=== PATIENT | female | born 1935 | race Caucasian/White ===

== ENCOUNTER 2017-05-15 03:10 | Emergency (ER) | payer MEDICARE ==
--- NOTE | 2017-05-15 03:48 | ER Document Report ---
ED General - General Stated Complaint: FALL Time Seen by Provider: 05/15/17 03:41 Notes: 81 years old male from [facility], accidentally in the bathroom fell hit the wall and sustained a laceration of the right eyebrow therefore presented to the ED she states that she has little bit of headache but no focal weakness numbness tingling sensation. Denies any neck pain neck stiffness. - Related Data Allergies/Adverse Reactions: BUG BITES Adverse Reaction (Uncoded 05/15/17 03:53) Past Medical History - Social History Smoking Status: Never Smoker Family History: CVA, Hypertension Review of Systems - Review of Systems Notes: REVIEW OF SYSTEMS: CONSTITUTIONAL : Denies fever, chills, or sweats. Denies recent illness. EENT: Denies eye, ear, throat, or mouth pain or symptoms. Denies nasal or sinus congestion or discharge. Denies throat, tongue, or mouth swelling or difficulty swallowing. CARDIOVASCULAR: Denies chest pain. Denies palpitations or racing or irregular heart beat. Denies ankle edema. RESPIRATORY: Denies cough, cold, or chest congestion. Denies shortness of breath, difficulty breathing, or wheezing. GASTROINTESTINAL: Denies abdominal pain or distention. Denies nausea, vomiting , or diarrhea. Denies blood in vomitus, stools, or per rectum. Denies black, tarry stools. Denies constipation. GENITOURINARY: Denies difficulty urinating, painful urination, burning, frequency, blood in urine, or discharge. FEMALE GENITOURINARY: Denies vaginal bleeding, heavy or abnormal periods, irregular periods. Denies vaginal discharge or odor. MUSCULOSKELETAL: Denies back or neck pain or stiffness. Denies joint pain or swelling. SKIN: Denies rash, lesions or sores. HEMATOLOGIC : Denies easy bruising or bleeding. LYMPHATIC: Denies swollen, enlarged glands. NEUROLOGICAL: Denies confusion or altered mental status. Denies passing out or loss of consciousness. Denies dizziness or lightheadedness. Denies headache. Denies weakness or paralysis or loss of use of either side. Denies problems with gait or speech. Denies sensory loss, numbness, or tingling. Denies seizures. PSYCHIATRIC: Denies anxiety or stress. Denies depression, suicidal ideation, or homicidal ideation. ALL OTHER SYSTEMS REVIEWED AND NEGATIVE. PHYSICAL EXAMINATION: GENERAL: Well-appearing, well-nourished and in no acute distress. HEAD: Right eyebrow minor laceration, normocephalic. EYES: Pupils equal round and reactive to light, extraocular movements intact, conjunctiva are normal. ENT: Nares patent, oropharynx clear without exudates. Moist mucous membranes. NECK: Normal range of motion, supple without lymphadenopathy LUNGS: Breath sounds clear to auscultation bilaterally and equal. No wheezes rales or rhonchi. HEART: Regular rate and rhythm without murmurs ABDOMEN: Soft, nontender, nondistended abdomen. No guarding, no rebound. No masses appreciated. Female : deferred Musculoskeletal: Normal range of motion, no pitting or edema. No cyanosis. Range of motion for shoulder shoulder elbow within normal range for her age but no tenderness. No pain elicited. Hip there were no tenderness able to flex and extend without any discomfort. NEUROLOGICAL: Cranial nerves grossly intact. Normal speech, normal gait. Normal sensory, motor exams PSYCH: Normal mood, normal affect. SKIN: Warm, Dry, normal turgor, no rashes or lesions noted. Dictation was performed using [employer] voice recognition software Physical Exam - Vital signs Vitals: Temp Pulse Resp BP Pulse Ox 97.6 F 67 15 145/71 H 97 05/15/17 03:15 05/15/17 03:15 05/15/17 03:15 05/15/17 03:15 05/15/17 03:15 Course - Vital Signs Vital signs: Temp Pulse Resp BP Pulse Ox 97.6 F 67 15 145/71 H 97 05/15/17 03:15 05/15/17 03:15 05/15/17 03:15 05/15/17 03:15 05/15/17 03:15 - Diagnostic Test Radiology reviewed: Reports reviewed - Reported by radiologist as negative CAT scan of the brain Discharge - Discharge Clinical Impression: Fall Qualifiers: Encounter type: initial encounter Qualified Code(s): W19.XXXA - Unspecified fall, initial encounter Head injury, acute Qualifiers: Encounter type: initial encounter Qualified Code(s): S09.90XA - Unspecified injury of head, initial encounter Laceration of eyebrow Qualifiers: Encounter type: initial encounter Laterality: right Qualified Code(s): S01.111A - Laceration without foreign body of right eyelid and periocular area, initial encounter Disposition: HOME, SELF-CARE Instructions: Head Injury Precautions ([facility])
--- NOTE | 2017-05-15 04:16 | RADIOLOGY REPORT (SQ) ---
EXAM DESCRIPTION: CT HEAD WITHOUT CLINICAL HISTORY: 81 years Female, head injury COMPARISON: None. TECHNIQUE: No contrast. This exam was performed according to our departmental dose-optimization program, which includes automated exposure control, adjustment of the mA and/or kV according to patient size and/or use of iterative reconstruction technique. FINDINGS: Mild cerebral volume loss, and moderate confluent white matter microangiopathy. No hemorrhage and no infarct. No mass, mass effect, or midline shift. 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 Extra-axial structures appear otherwise grossly intact. IMPRESSION: No acute findings.
[2017-05-15 05:38] VITALS: BP 155/74
== END 2017-05-15 06:07 | disposition home or self-care (01) ==
LOC: ER 03:10
DX: S01.111A Laceration without foreign body of right eyelid and periocular area, initial encounter (principal); W19.XXXA Unspecified fall, initial encounter; Y92.121 Bathroom in nursing home as the place of occurrence of the external cause; R51 Headache
CPT/HCPCS: 70450; 99284

== ENCOUNTER → 2017-10-11 | Outpatient (CLI) | payer MEDICARE ==
[2017-10-11 12:50] LABS: AMORPHOUS SEDIMENT,URINE TRACE /HPF; APPEARANCE,URINE CLOUDY; BILIRUBIN,URINE NEGATIVE (NEGATIVE); COLOR,URINE YELLOW; GLUCOSE, URINE NEGATIVE (NEGATIVE); KETONES,URINE NEGATIVE (NEGATIVE); LEUKOCYTE ESTERASE,URINE LARGE (NEGATIVE); NITRITE,URINE NEGATIVE (NEGATIVE); PROTEIN,URINE 100 mg/dL (NEGATIVE); URINE SPECIFIC GRAVITY 1.018; UROBILINOGEN,URINE NEGATIVE mg/dL (<2.0)
== END ==
LOC: LCAL 11:46
PROVIDERS: ATTEND Internal Medicine
DX: N39.0 Urinary tract infection, site not specified (principal)
CPT/HCPCS: 81001; 87086; 87088; 87186

== ENCOUNTER 2017-10-21 18:32 | Emergency (ER) | payer MEDICARE ==
--- NOTE | 2017-10-21 18:57 | ER Document Report ---
ED General - General Chief Complaint: Urinary Problem Stated Complaint: URINATION ISSUE Time Seen by Provider: 10/21/17 18:38 Mode of Arrival: Medic Information source: Patient, Relative, Transfer Record, [facility] Records, Outside Facility Records Cannot obtain history due to: Dementia Notes: 82-year-old female with vascular dementia presents with her daughter who is concerned for chronic urinary tract infection. Per the daughter patient has had a urinary tract infection for over 1 month. She has been on cefuroxime intermittently for over 1 month. Daughter states that she became concerned when her mother had a low-grade temperature last night. Her last dose of antibiotic was yesterday. Recent urine culture showed that the antibiotic she has been prescribed is sensitive to E. coli but not Pseudomonas. Patient is at her baseline per her daughter which is alert and oriented 1. She denies any pain at this time. TRAVEL OUTSIDE OF THE [place] IN LAST 30 DAYS: No - HPI Onset: Other Quality of pain: No pain Associated symptoms: Fever Exacerbated by: Denies Relieved by: Denies Similar symptoms previously: Yes Recently seen / treated by doctor: Yes - Related Data Allergies/Adverse Reactions: BUG BITES Adverse Reaction (Uncoded 05/15/17 03:53) Past Medical History - General Information source: Relative, Transfer Record, Emergency Med Personnel, [facility] Records, Outside Facility Records Cannot obtain history due to: Dementia - Social History Smoking Status: Unknown if Ever Smoked Frequency of alcohol use: None Drug Abuse: None Lives with: Assisted Family History: CVA, Hypertension Patient has suicidal ideation: No Patient has homicidal ideation: No - Past Medical History Cardiac Medical History: Reports: Hx Hypertension Renal/ Medical History: Denies: Hx Peritoneal Dialysis Review of Systems - Review of Systems -: Yes ROS unobtainable due to patient's medical condition Physical Exam - Vital signs Vitals: Temp Pulse Resp BP Pulse Ox 98.2 F 64 16 148/48 H 98 10/21/17 18:35 10/21/17 18:35 10/21/17 18:35 10/21/17 18:35 10/21/17 18:35 - Notes Notes: PHYSICAL EXAMINATION: GENERAL: Well-appearing, well-nourished and in no acute distress. HEAD: Atraumatic, normocephalic. EYES: Pupils equal round and reactive to light, extraocular movements intact, conjunctiva are normal. ENT: Nares patent, oropharynx clear without exudates. Moist mucous membranes. NECK: Normal range of motion, supple without lymphadenopathy LUNGS: Breath sounds clear to auscultation bilaterally and equal. No wheezes rales or rhonchi. HEART: Regular rate and rhythm without murmurs ABDOMEN: Soft, nontender, nondistended abdomen. No guarding, no rebound. No masses appreciated. Female : deferred Musculoskeletal: Normal range of motion, no pitting or edema. No cyanosis. NEUROLOGICAL: Cranial nerves grossly intact. Normal sensory, motor exams. AO 1 PSYCH: Normal mood, normal affect. SKIN: Warm, Dry, normal turgor, no rashes or lesions noted. Course - Re-evaluation Re-evalutation: Microbiology 10/21/17 20:05 Urine Culture - Preliminary Catheterized Urine Gram Negative [facility] 10/21/17 10/21/17 10/21/17 19:45 19:45 19:45 WBC 10.2 RBC 4.13 Hgb 12.2 Hct 36.2 MCV 88 MCH 29.6 MCHC 33.8 RDW 13.8 Plt Count 654 H Total Counted 100 Seg Neutrophils % Not Reportable Seg Neuts % (Manual) 55 Lymphocytes % Not Reportable Lymphocytes % (Manual) 30 Monocytes % Not Reportable Monocytes % (Manual) 8 Eosinophils % Not Reportable Eosinophils % (Manual) 6 Basophils % Not Reportable Basophils % (Manual) 1 Absolute Neutrophils Not Reportable Abs Neuts (Manual) 5.6 Absolute Lymphocytes Not Reportable Abs Lymphs (Manual) 3.1 Absolute Monocytes Not Reportable Abs Monocytes (Manual) 0.8 Absolute Eosinophils Not Reportable Absolute Eos (Manual) 0.6 Absolute Basophils Not Reportable Abs Basophils (Manual) 0.1 Toxic Granulation SLIGHT Toxic Vacuolation PRESENT Clumped Platelets PRESENT Platelet Comment Not Reportable Polychromasia SLIGHT Hypochromasia SLIGHT Sodium 142.0 Potassium 4.5 Chloride 101 Carbon Dioxide 30 Anion Gap 11 BUN 15 Creatinine 0.69 Est GFR ( Amer) > 60 Est GFR (Non-Af Amer) > 60 Glucose 105 Lactic Acid 1.2 Calcium 9.6 Total Bilirubin < 0.1 L Direct Bilirubin Neonat Total Bilirubin Not Reportable Neonat Direct Bilirubin Not Reportable Neonat Indirect Bili Not Reportable AST 19 ALT 22 Alkaline Phosphatase 111 Total Protein 8.2 Albumin 3.8 Urine Color Urine Appearance Urine pH Ur Specific [place] Urine Protein Urine Glucose (UA) Urine Ketones Urine Blood Urine Nitrite Urine Bilirubin Urine Urobilinogen Ur Leukocyte Esterase Urine WBC (Auto) Urine RBC (Auto) Urine Bacteria (Auto) Urine WBC Clumps Squamous Epi Cells Auto Urine Mucus (Auto) Urine Ascorbic Acid 10/21/17 20:05 WBC RBC Hgb Hct MCV MCH MCHC RDW Plt Count Total Counted Seg Neutrophils % Seg Neuts % (Manual) Lymphocytes % Lymphocytes % (Manual) Monocytes % Monocytes % (Manual) Eosinophils % Eosinophils % (Manual) Basophils % Basophils % (Manual) Absolute Neutrophils Abs Neuts (Manual) Absolute Lymphocytes Abs Lymphs (Manual) Absolute Monocytes Abs Monocytes (Manual) Absolute Eosinophils Absolute Eos (Manual) Absolute Basophils Abs Basophils (Manual) Toxic Granulation Toxic Vacuolation Clumped Platelets Platelet Comment Polychromasia Hypochromasia Sodium Potassium Chloride Carbon Dioxide Anion Gap BUN Creatinine Est GFR ( Amer) Est GFR (Non-Af Amer) Glucose Lactic Acid Calcium Total Bilirubin Direct Bilirubin Neonat Total Bilirubin Neonat Direct Bilirubin Neonat Indirect Bili AST ALT Alkaline Phosphatase Total Protein Albumin Urine Color YELLOW Urine Appearance CLOUDY Urine pH 6.0 Ur Specific [place] 1.018 Urine Protein NEGATIVE Urine Glucose (UA) NEGATIVE Urine Ketones NEGATIVE Urine Blood SMALL H Urine Nitrite NEGATIVE Urine Bilirubin NEGATIVE Urine Urobilinogen NEGATIVE Ur Leukocyte Esterase LARGE H Urine WBC (Auto) 179 Urine RBC (Auto) 12 Urine Bacteria (Auto) 1+ Urine WBC Clumps FEW Squamous Epi Cells Auto <1 Urine Mucus (Auto) RARE Urine Ascorbic Acid NEGATIVE 10/21/17 21:33 10/22/17 19:51 82-year-old female with vascular dementia presents with her daughter who is concerned for chronic urinary tract infection. Per the daughter patient has had a urinary tract infection for over 1 month. She has been on cefuroxime intermittently for over 1 month. Daughter states that she became concerned when her mother had a low-grade temperature last night. Her last dose of antibiotic was yesterday. Culture results reviewed from 10/11/2017 which shows that cefuroxime is sensitive to E. coli but not Pseudomonas. I will start patient on ciprofloxacin. Urine culture will be sent. Patient was seen by myself upon arrival. Vital signs were reviewed. Patient is afebrile, normotensive and not hypoxic. Patient does not appear toxic or dehydrated. They are in no acute distress. Previous medical records and nursing notes reviewed. CBC is without leukocytosis or anemia. CMP shows no electrolyte abnormalities. Urinalysis is significant for large leuk esterase and 179 wbc. I feel is reasonable for the patient to be discharged home at this time. There is no evidence of urosepsis. I would not call her outpatient failure since the antibiotic that she was prescribed was sensitive to 1 of the bug that grew out culture. Patient received Cipro in the emergency department and will be discharged home with Cipro. Urine culture pending. Patient/family provided the opportunity to ask questions, and express concerns. Discharge instructions discussed. Patient/ is agreeable with discharge home. Return indications explained and discussed with the patient who displays understanding. Patient encouraged to return to the emergency department immediately with any concerns. - Vital Signs Vital signs: Temp Pulse Resp BP Pulse Ox 97.9 F 67 18 145/84 H 98 10/21/17 23:52 10/21/17 23:52 10/21/17 23:52 10/21/17 23:52 10/21/17 23:52 - Laboratory Result Diagrams: 10/21/17 19:45 10/21/17 19:45 Laboratory results interpreted by me: 10/21/17 10/21/17 10/21/17 19:45 19:45 20:05 Plt Count 654 H Total Bilirubin < 0.1 L Urine Blood SMALL H Ur Leukocyte Esterase LARGE H Discharge - Discharge Clinical Impression: UTI (urinary tract infection) Qualifiers: Urinary tract infection type: site unspecified Hematuria presence: with hematuria Qualified Code(s): N39.0 - Urinary tract infection, site not specified Condition: Good Disposition: SNF-Other Instructions: Urinary Tract Infection, Child ([facility]) Additional Instructions: Follow up with your physician tomorrow for further care or return to the ED IMMEDIATELY if symptoms worsen or new concerns occur. If you cannot afford to follow up with your primary care physician a list of low cost clinics have been provided at the end of your discharge papers as well. Prescriptions: Ciprofloxacin HCl [Cipro 500 mg Tablet] 500 mg PO BID #20 tablet
[2017-10-21] MEDS ORDERED: NORMAL SALINE 1000 ML 1,000 ML IV ONE (19:16)
[2017-10-21 19:57] LABS: HEMATOCRIT 36.2 % (36.0-47.0); HEMOGLOBIN 12.2 g/dL (12.0-15.5); MEAN CORPUSCULAR HEMOGLOBIN 29.6 pg (27.0-33.4); MEAN CORPUSCULAR HGB CONC 33.8 g/dL (32.0-36.0); MEAN CORPUSCULAR VOLUME 88 fl (80-97); PLATELET COUNT 654 10^3/uL (150-450); RED BLOOD COUNT 4.13 10^6/uL (3.72-5.28); RED CELL DISTRIBUTION WIDTH 13.8 % (11.5-14.0); WHITE BLOOD COUNT 10.2 10^3/uL (4.0-10.5)
[2017-10-21 20:12] LABS: ALANINE AMINOTRANSFERASE 22 U/L (9-52); ALBUMIN 3.8 g/dL (3.5-5.0); ALKALINE PHOSPHATASE 111 U/L (38-126); ANION GAP 11 (5-19); ASPARTATE AMINO TRANSFERASE 19 U/L (14-36); BLOOD UREA NITROGEN 15 mg/dL (7-20); CALCIUM 9.6 mg/dL (8.4-10.2); CARBON DIOXIDE 30 mmol/L (22-30); CHLORIDE 101 mmol/L (98-107); GLUCOSE 105 mg/dL (75-110); POTASSIUM 4.5 mmol/L (3.6-5.0); TOTAL PROTEIN 8.2 g/dL (6.3-8.2)
[2017-10-21 20:13] LABS: BILIRUBIN,TOTAL < 0.1 mg/dL (0.2-1.3)
[2017-10-21 20:16] LABS: ABSOLUTE LYMPHOCYTES# (MANUAL) 3.1 10^3/uL (0.5-4.7); ABSOLUTE MONOCYTES # (MANUAL) 0.8 10^3/uL (0.1-1.4); ABSOLUTE NEUTROPHILS# (MANUAL) 5.6 10^3/uL (1.7-8.2); BASOPHILS % (MANUAL) 1 % (0-2); EOSINOPHILS % (MANUAL) 6 % (0-6); LYMPHOCYTES % (MANUAL) 30 % (13-45); MONOCYTES % (MANUAL) 8 % (3-13); SEGMENTED NEUTROPHILS % (MAN) 55 % (42-78); TOTAL CELLS COUNTED 100
[2017-10-21 20:27] LABS: PLATELET CLUMPS PRESENT; TOXIC GRANULATION SLIGHT; TOXIC VACUOLATION PRESENT
[2017-10-21 20:28] LABS: HYPOCHROMASIA SLIGHT; POLYCHROMASIA SLIGHT
[2017-10-21 20:52] LABS: APPEARANCE,URINE CLOUDY; BILIRUBIN,URINE NEGATIVE (NEGATIVE); COLOR,URINE YELLOW; GLUCOSE, URINE NEGATIVE (NEGATIVE); KETONES,URINE NEGATIVE (NEGATIVE); LEUKOCYTE ESTERASE,URINE LARGE (NEGATIVE); NITRITE,URINE NEGATIVE (NEGATIVE); PROTEIN,URINE NEGATIVE (NEGATIVE); URINE SPECIFIC GRAVITY 1.018; UROBILINOGEN,URINE NEGATIVE mg/dL (<2.0)
[2017-10-21] MEDS ORDERED: CIPROFLOXACIN 400 MG/D5W RTU 400 MG/200 ML RTUPB IV ONE (21:26)
[2017-10-21 23:54] VITALS: BP 145/84
== END 2017-10-21 23:52 ==
LOC: ER 18:32
DX: N39.0 Urinary tract infection, site not specified (principal); R31.9 Hematuria, unspecified; F01.50 Vascular dementia, unspecified severity, without behavioral disturbance, psychotic disturbance, mood disturbance, and anxiety; I10 Essential (primary) hypertension
CPT/HCPCS: 99284; 96361; 51701; 96365; 36415; 87086; 83605; 85025; 87088; 80053; 81001; 87186; J7030; J0744

== ENCOUNTER → 2017-11-28 | Outpatient (CLI) | payer MEDICARE | LOC: LC 17:55 | PROVIDERS: ATTEND Internal Medicine | DX: N39.0 Urinary tract infection, site not specified (principal) | CPT/HCPCS: 87086; 87088; 87186 ==

== ENCOUNTER 2017-12-13 14:00 | Inpatient (IN) | payer MEDICARE ==
[2017-12-13] MEDS ORDERED: ONDANSETRON HCL INJ/PF 4 MG/2 ML SDV IV ONE (15:18)
--- NOTE | 2017-12-13 15:42 | RADIOLOGY REPORT (SQ) ---
EXAM DESCRIPTION: CHEST SINGLE VIEW COMPLETED DATE/TIME: 12/13/2017 3:31 pm REASON FOR STUDY: syncope, ams COMPARISON: None. EXAM PARAMETERS: NUMBER OF VIEWS: One view. TECHNIQUE: Single frontal radiographic view of the chest acquired. RADIATION DOSE: NA LIMITATIONS: None. FINDINGS: LUNGS AND PLEURA: There is bilateral pleural apical thickening. There is mild atelectasis at the left lung base. No sizable pleural effusion or pneumothorax. MEDIASTINUM AND HILAR STRUCTURES: No masses. Contour normal. HEART AND VASCULAR STRUCTURES: Heart normal in size. Normal vasculature. BONES: No acute findings. HARDWARE: None in the chest. IMPRESSION: Mild left basilar atelectasis. TECHNICAL DOCUMENTATION: JOB ID: [id number] [employer]- All Rights Reserved Reading location - IP/workstation name: [email or web address]
--- NOTE | 2017-12-13 16:02 | ER Document Report ---
ED General - General Chief Complaint: Near Syncope Stated Complaint: SYNCOPE Time Seen by Provider: 12/13/17 14:13 Cannot obtain history due to: Dementia TRAVEL OUTSIDE OF THE [place] IN LAST 30 DAYS: No - HPI Notes: 82-year-old female with history of dementia brought in from assisted living for syncopal episode after having a bowel movement. Daughter states this happened 2 years ago while she was caring for her at home after a bowel movement. She was not transported to the hospital. Today, she had assistance going to the bathroom from the lunch room. She had a semi-formed bowel movement and then a syncopal episode. She vomited twice en route to the emergency department. Daughter states any time this occurs, she is extremely "tired" for a prolonged amount of time. She was recently diagnosed with pneumonia and UTI and treated with Cipro, followed by clindamycin, followed by amoxicillin. This was completed this week. No medical problems except for vascular dementia. She is nonambulatory in a wheelchair. She has had a normal recent appetite and was behaving normally last night. Daughter states she is at her baseline mental status at this time. Patient is lying in bed with eyes closed and will not answer any questions. - Related Data Allergies/Adverse Reactions: BUG BITES Adverse Reaction (Uncoded 05/15/17 03:53) Past Medical History - Social History Smoking Status: Never Smoker Chew tobacco use (# tins/day): No Family History: CVA, Hypertension Patient has suicidal ideation: No Patient has homicidal ideation: No - Past Medical History Cardiac Medical History: Reports: Hx Hypertension Renal/ Medical History: Denies: Hx Peritoneal Dialysis Past Surgical History: Reports: Hx Abdominal Surgery - bowel resection Review of Systems - Review of Systems -: Yes ROS unobtainable due to patient's medical condition - Dementia Physical Exam - Vital signs Vitals: Pulse Resp BP Pulse Ox 99 25 H 146/83 H 98 12/13/17 14:06 12/13/17 14:06 12/13/17 14:06 12/13/17 14:06 - Notes Notes: PHYSICAL EXAMINATION: GENERAL: Lying in bed with eyes closed, mumbles some answers. Does not follow commands HEAD: Atraumatic, normocephalic. EYES: Pupils equal round and reactive to light, extraocular movements intact, conjunctiva are normal. ENT: nares patent, oropharynx clear without exudates. Moist mucous membranes. NECK: Normal range of motion, supple without lymphadenopathy LUNGS: Breath sounds clear to auscultation bilaterally and equal. No wheezes rales or rhonchi. HEART: Regular rate and rhythm, no chest wall tenderness ABDOMEN: Soft, nontender, normoactive bowel sounds. No guarding, no rebound. No masses appreciated. EXTREMITIES: Normal range of motion, no pitting or edema. No cyanosis. NEUROLOGICAL: No obvious focal neurologic deficits. Mostly nonverbal PSYCH: Nonverbal SKIN: Warm, diaphoretic, normal turgor, no rashes or lesions noted. Course - Re-evaluation Re-evalutation: 12/13/17 16:01 Daughter has refused most every attempts at procedures including rectal temp, catheterized urine, and CT of her head. Initial attempt at labs unsuccessful. Awaiting lab to come and draw blood. Chest x-ray unremarkable. Patient DNR. 12/13/17 18:27 Patient septic from urinary tract infection. Cultures and Rocephin ordered. Given fluids. Will recheck lactic. Discussed with hospitalist for admission. No ST changes on EKG. Normal intervals. - Vital Signs Vital signs: Temp Pulse Resp BP Pulse Ox 97.3 F 99 25 H 146/83 H 99 12/13/17 16:06 12/13/17 14:06 12/13/17 15:00 12/13/17 14:06 12/13/17 15:00 - Laboratory Result Diagrams: 12/13/17 16:00 12/13/17 16:00 Laboratory results interpreted by me: 12/13/17 12/13/17 12/13/17 16:00 16:00 16:00 WBC 24.5 H RDW 15.0 H Plt Count 486 H Seg Neuts % (Manual) 94 H Lymphocytes % (Manual) 2 L Abs Neuts (Manual) 23.0 H BUN 21 H Est GFR ( Amer) 57 L Est GFR (Non-Af Amer) 47 L Glucose 147 H Lactic Acid 4.0 H Urine Protein Urine Blood Urine Nitrite Ur Leukocyte Esterase 12/13/17 17:25 WBC RDW Plt Count Seg Neuts % (Manual) Lymphocytes % (Manual) Abs Neuts (Manual) BUN Est GFR ( Amer) Est GFR (Non-Af Amer) Glucose Lactic Acid Urine Protein >=500 H Urine Blood SMALL H Urine Nitrite POSITIVE H Ur Leukocyte Esterase MODERATE H Discharge - Discharge Clinical Impression: Sepsis Qualifiers: Sepsis type: sepsis due to unspecified organism Qualified Code(s): A41.9 - Sepsis, unspecified organism Urinary tract infection Qualifiers: Urinary tract infection type: site unspecified Hematuria presence: with hematuria Qualified Code(s): N39.0 - Urinary tract infection, site not specified ; R31.9 - Hematuria, unspecified; R31.9 - Hematuria, unspecified Syncope Qualifiers: Syncope type: unspecified Qualified Code(s): R55 - Syncope and collapse Condition: Fair Disposition: ADMITTED INPATIENT Admitting Provider: Hospitalist Unit Admitted: Telemetry Referrals: KRISTY ELKINS MD [Primary Care Provider] - Follow up as needed
[2017-12-13 16:26] LABS: MEAN CORPUSCULAR HEMOGLOBIN 28.8 pg (27.0-33.4); MEAN CORPUSCULAR HGB CONC 33.2 g/dL (32.0-36.0); MEAN CORPUSCULAR VOLUME 87 fl (80-97); PLATELET COUNT 486 10^3/uL (150-450); RED BLOOD COUNT 4.84 10^6/uL (3.72-5.28); WHITE BLOOD COUNT 24.5 10^3/uL (4.0-10.5)
[2017-12-13 16:44] LABS: ABSOLUTE LYMPHOCYTES# (MANUAL) 0.5 10^3/uL (0.5-4.7); ALANINE AMINOTRANSFERASE 27 U/L (9-52); ALKALINE PHOSPHATASE 101 U/L (38-126); ANION GAP 15 (5-19); ASPARTATE AMINO TRANSFERASE 20 U/L (14-36); BASOPHILS % (MANUAL) 0 % (0-2); BILIRUBIN,DIRECT 0.3 mg/dL (0.0-0.4); BILIRUBIN,TOTAL 0.5 mg/dL (0.2-1.3); BLOOD UREA NITROGEN 21 mg/dL (7-20); CALCIUM 9.8 mg/dL (8.4-10.2); CARBON DIOXIDE 23 mmol/L (22-30); CHLORIDE 104 mmol/L (98-107); EOSINOPHILS % (MANUAL) 0 % (0-6); GLUCOSE 147 mg/dL (75-110); LIPASE 98.8 U/L (23-300); LYMPHOCYTES % (MANUAL) 2 % (13-45); MONOCYTES % (MANUAL) 4 % (3-13); POTASSIUM 4.3 mmol/L (3.6-5.0); SEGMENTED NEUTROPHILS % (MAN) 94 % (42-78); SODIUM 142.4 mmol/L (137-145); TOTAL CELLS COUNTED 100
[2017-12-13 16:45] LABS: ANISOCYTOSIS SLIGHT; PLATELET COMMENT INCREASED; PLATELET LARGE PRESENT
[2017-12-13] MEDS ORDERED: CEFTRIAXONE INJ 1000 MG VIAL IV ONE (16:59)
[2017-12-13] MEDS ORDERED: NORMAL SALINE 1000 ML 1,000 ML IV ONE (16:59)
[2017-12-13 18:09] LABS: APPEARANCE,URINE TURBID; BILIRUBIN,URINE NEGATIVE (NEGATIVE); COLOR,URINE AMBER; GLUCOSE, URINE NEGATIVE (NEGATIVE); KETONES,URINE NEGATIVE (NEGATIVE); LEUKOCYTE ESTERASE,URINE MODERATE (NEGATIVE); NITRITE,URINE POSITIVE (NEGATIVE); PROTEIN,URINE >=500 mg/dL (NEGATIVE); URINE SPECIFIC GRAVITY 1.018; UROBILINOGEN,URINE NEGATIVE mg/dL (<2.0)
[2017-12-13] MEDS ORDERED: ACETAMINOPHEN 325 MG TABLET PO PRN (20:25)
--- NOTE | 2017-12-13 21:20 | PDOC H&P ---
History of Present Illness Admission Date/PCP: 12/13/17 18:43 KRISTY ELKINS Patient complains of: sycope History of Present Illness: DAVID AUGUSTE is a 82 year old female from a nursing home facility at [facility]. Patient comes after she was having a bowel movement and had a syncopal episode in the morning, patient cannot provide history as is lethargic. Son is at the bedside and I got information from him and the ED records. Had a bowel movement which was soft and nonbloody. Apparently patient did not have any recent fever or chills but she was treated 2 weeks ago for urinary tract infection, was on amoxicillin later this week. Has generalized weakness. She is nonambulatory in a wheelchair. Family tells me that she was doing great during the last week. She has vascular dementia and upon arrival to the ED was at her baseline mental status. Currently patient is laying in bed with eyes closed and cannot answer any questions appropriately, moaning. Laboratory in the emergency department was consistent with sepsis urinalysis positive for infection. Past Medical History Cardiac Medical History: Denies: Hypertension Neurological Medical History: Reports: Other - Vascular dementia Malignancy Medical History: Reports: Colorectal Cancer Past Surgical History Past Surgical History: Reports: Other - Bowel resection Social History Information Source: Relative Lives with: Skilled Nursing Smoking Status: Former Smoker Frequency of Alcohol Use: None Drugs: None Family History Family History: CVA, Hypertension Family History: Unable to obtain as patient is very lethargic Parental Family History Reviewed: No Children Family History Reviewed: NA Sibling(s) Family History Reviewed.: NA Medication/Allergy Home Medications: Ciprofloxacin HCl [Cipro 500 mg Tablet] 500 mg PO BID #20 tablet 10/21/17 Allergies/Adverse Reactions: BUG BITES Adverse Reaction (Uncoded 05/15/17 03:53) Review of Systems Review of Systems: Unable to obtain as patient is lethargic Physical Exam Vital Signs: Temp Pulse Resp BP Pulse Ox 97.3 F 99 22 H 121/61 95 12/13/17 16:06 12/13/17 14:06 12/13/17 20:01 12/13/17 20:00 12/13/17 20:01 Additional comments: General appearance: Well-developed, well-nourished, alert nocooperative secondary to lethargy, and appears to be in no acute distress Head: Normocephalic Eyes: PEERL, rest unable to evaluate. Ears: External auditory canal and tympanic membranes clear, hearing grossly intact. Nose: No nasal discharge. Throat: Oral cavity and pharynx dry. No inflammation, swelling, exudate or lesions. Neck: Neck supple, nontender without lymphadenopathy, masses or thyromegaly. Cardiac: Normal S1 and S2. No S3, S4 or murmurs. Rhythm is regular and tachycardic. There is no peripheral edema, cyanosis or pallor. Extremities are warm and well perfused. Capillary refill is less than 2 seconds. No carotid bruits. Lungs: Clear to auscultation and percussion without rales, rhonchi, wheezing or diminished breath sounds. Not using accessory muscles. Abdomen: Positive bowel sounds. Soft. Nondistended, nontender. No guarding or rebound. No masses. No hepatosplenomegaly Extremities: No significant deformity or joint abnormality. No edema. Peripheral pulses intact. varicosities. Neurological: Unable to evaluate the patient's mental status Skin: Skin pale, normal texture and turgor with no lesions or eruptions, warm and dry. Psychiatric: Unble to evaluate this patient is nonverbal now Results Laboratory Results: 12/13/17 12/13/17 12/13/17 16:00 16:00 16:00 WBC 24.5 H Hgb 14.0 Hct 42.0 Plt Count 486 H Seg Neuts % (Manual) 94 H Lymphocytes % (Manual) 2 L Abs Neuts (Manual) 23.0 H Large Platelets PRESENT Platelet Comment INCREASED Sodium 142.4 Potassium 4.3 Chloride 104 Carbon Dioxide 23 Anion Gap 15 BUN 21 H Creatinine 1.11 Est GFR (Non-Af Amer) 47 L Glucose 147 H Lactic Acid 4.0 H Calcium 9.8 Magnesium 1.7 Total Bilirubin 0.5 Direct Bilirubin 0.3 AST 20 ALT 27 Alkaline Phosphatase 101 Total Protein 8.0 Albumin 4.0 Lipase 98.8 12/13/17 20:10 WBC Hgb Hct Plt Count Seg Neuts % (Manual) Lymphocytes % (Manual) Abs Neuts (Manual) Large Platelets Platelet Comment Sodium Potassium Chloride Carbon Dioxide Anion Gap BUN Creatinine Est GFR (Non-Af Amer) Glucose Lactic Acid 5.9 H Calcium Magnesium Total Bilirubin Direct Bilirubin AST ALT Alkaline Phosphatase Total Protein Albumin Lipase Impressions: Chest X-Ray 07/21/18 14:29 IMPRESSION: Mild left basilar atelectasis. Assessment & Plan - Diagnosis (1) Sepsis Qualifiers: Sepsis type: sepsis due to unspecified organism Qualified Code(s): A41.9 - Sepsis, unspecified organism Is this a current diagnosis for this admission?: Yes Plan: Patient meets the criteria with leukocytosis, tachycardia, focus of infection lactic acidosis (2) Urinary tract infection Qualifiers: Urinary tract infection type: site unspecified Hematuria presence: without hematuria Qualified Code(s): N39.0 - Urinary tract infection, site not specified Is this a current diagnosis for this admission?: Yes Plan: We will go ahead and continue the patient with IV Rocephin. Please follow blood cultures and urine cultures. IV fluids with normal saline. We will repeat lactic acid in the morning. (3) Syncope Qualifiers: Syncope type: unspecified Qualified Code(s): R55 - Syncope and collapse Is this a current diagnosis for this admission?: Yes Plan: This is likely multifactorial the patient is septic and dehydrated (4) Acute renal failure Is this a current diagnosis for this admission?: Yes Plan: BUN 21 and creatinine 1.1, last creatinine was normal. This is likely secondary to dehydration, patient has had 1 L of IV fluids in the ED and we will continue with normal saline 100 cc/h. Will reassess renal panel in the morning. Do not feel other workup is warranted. - Time Time Spent: 30 to 50 Minutes - Inpatient Certification Based on my medical assessment, after consideration of the patient's comorbidities, presenting symptoms, or acuity I expect that the services needed warrant INPATIENT care.: Yes I certify that my determination is in accordance with my understanding of Medicare's requirements for reasonable and necessary INPATIENT services [42 CFR 412.3e].: Yes Medical Necessity: Need for IV Antibiotics, Risk of Diagnosis Which Will Require Inpatient Eval/Care/Monitoring
--- NOTE | 2017-12-13 21:58 | EKG REPORT ---
SEVERITY:- BORDERLINE ECG - SINUS TACHYCARDIA BORDERLINE T ABNORMALITIES, LATERAL LEADS : Confirmed by: Trey Harding 13-Dec-2017 21:58:05
[2017-12-14 06:09] LABS: HEMATOCRIT 33.7 % (36.0-47.0); MEAN CORPUSCULAR HEMOGLOBIN 28.5 pg (27.0-33.4); MEAN CORPUSCULAR VOLUME 86 fl (80-97); PLATELET COUNT 412 10^3/uL (150-450); RED BLOOD COUNT 3.91 10^6/uL (3.72-5.28); RED CELL DISTRIBUTION WIDTH 14.9 % (11.5-14.0); WHITE BLOOD COUNT 26.4 10^3/uL (4.0-10.5)
[2017-12-14 06:26] LABS: ANION GAP 15 (5-19); BLOOD UREA NITROGEN 26 mg/dL (7-20); CALCIUM 8.8 mg/dL (8.4-10.2); CARBON DIOXIDE 18 mmol/L (22-30); CHLORIDE 110 mmol/L (98-107); GLUCOSE 125 mg/dL (75-110); POTASSIUM 4.6 mmol/L (3.6-5.0); SODIUM 142.7 mmol/L (137-145)
[2017-12-14 06:35] LABS: HEMOGLOBIN 11.1 g/dL (12.0-15.5)
[2017-12-14] MEDS ORDERED: NORMAL SALINE 1000 ML 1,000 ML IV ONE (08:21)
[2017-12-14] MEDS: NORMAL SALINE 1000 ML 1,000 ML IV PRN ×3 (09:16→17:33)
[2017-12-14] MEDS: ENOXAPARIN SODIUM INJ 40 MG/0.4 ML DISP.SYRIN SUBCUT SCH (09:50)
[2017-12-14] MEDS ORDERED: CEFEPIME 1 GM/D5W RTU 1 GM/50 ML RTUPB IV SCH (10:00)
[2017-12-14] MEDS ORDERED: CEFTRIAXONE 1 GM/D5W RTU 1 GM/50 ML RTUPB IV SCH (10:00)
[2017-12-14] MEDS ORDERED: CEFTRIAXONE SODIUM 1,000 MG in DEXTROSE 5%-WATER 50 ML IV SCH (10:00)
[2017-12-14] MEDS: CEFEPIME 2 GM/D5W RTU 2 GM/50 ML RTUPB IV SCH ×2 (12:42→21:51)
[2017-12-14] MEDS ORDERED: [UNRECOGNIZED DRUG - OTHER] PO SCH (13:30)
[2017-12-14] MEDS ORDERED: CHOLECALCIFEROL PO SCH (13:30)
[2017-12-14] MEDS ORDERED: ASPIRIN 81 MG TABLET, ENT COATED PO ONE (15:00)
--- NOTE | 2017-12-14 17:09 | PDOC PROGRESS REPORT ---
Subjective Progress Note for:: 12/14/17 Subjective:: Patient has vascular dementia and family states that when she is sick she is really unable to verbalize well. I obtained information today from patient's daughter and son at the bedside. They states she is much improved. She is waking up and drinking a little bit of fluid. No evidence of acute pain. No nausea vomiting. We discussed at length good toileting habits that can be used at her assisted living to help prevent urinary tract infections so we also discussed that she will probably always struggle with recurrent urinary tract infections at this point, given her advanced age and advanced dementia. Reason For Visit: SEPSIS WITH UTI Physical Exam Vital Signs: Temp Pulse Resp BP Pulse Ox 99.4 F 80 16 125/43 L 97 12/14/17 15:52 12/14/17 15:52 12/14/17 15:52 12/14/17 15:52 12/14/17 15:52 Intake & Output 12/13/17 12/14/17 12/15/17 06:59 06:59 06:59 Intake Total 755 Balance 755 Weight 61 kg General appearance: PRESENT: no acute distress, thin Head exam: PRESENT: atraumatic, normocephalic Eye exam: ABSENT: conjunctival injection, scleral icterus Mouth exam: PRESENT: moist Respiratory exam: PRESENT: clear to auscultation derek, unlabored. ABSENT: rales , rhonchi, wheezes Cardiovascular exam: PRESENT: RRR. ABSENT: systolic murmur Pulses: PRESENT: normal radial pulses GI/Abdominal exam: PRESENT: normal bowel sounds, soft. ABSENT: distended, guarding, tenderness Rectal exam: PRESENT: deferred Extremities exam: ABSENT: pedal edema, +1 edema Neurological exam: PRESENT: awake, oriented to person, aphasic. ABSENT: oriented to place, oriented to situation Psychiatric exam: ABSENT: anxious Skin exam: PRESENT: dry, intact, warm Results Laboratory Results: 12/14/17 05:47 12/14/17 05:47 12/13/17 12/14/17 12/14/17 20:10 05:47 05:47 WBC 26.4 H RBC 3.91 Hgb 11.1 L D Hct 33.7 L MCV 86 MCH 28.5 MCHC 33.0 RDW 14.9 H Plt Count 412 Sodium Potassium Chloride Carbon Dioxide Anion Gap BUN Creatinine Est GFR ( Amer) Est GFR (Non-Af Amer) Glucose Lactic Acid 5.9 H 3.3 H Calcium Magnesium 12/14/17 12/14/17 05:47 10:23 WBC RBC Hgb Hct MCV MCH MCHC RDW Plt Count Sodium 142.7 Potassium 4.6 Chloride 110 H Carbon Dioxide 18 L Anion Gap 15 BUN 26 H Creatinine 1.32 H Est GFR ( Amer) 46 L Est GFR (Non-Af Amer) 38 L Glucose 125 H Lactic Acid 2.8 H Calcium 8.8 Magnesium 1.7 Impressions: Chest X-Ray 12/13/17 14:29 IMPRESSION: Mild left basilar atelectasis. Assessment & Plan - Diagnosis (1) Acute renal failure Is this a current diagnosis for this admission?: Yes Plan: Secondary to urinary tract infection and sepsis. Patient's BUN and creatinine worsened from admission to morning labs. She has been receiving fluid resuscitation and I will check both lactate and her renal function again now. If worsening we will administer more fluids and possibly expand the workup. Patient has a urine culture pending. (2) Sepsis Qualifiers: Sepsis type: sepsis due to unspecified organism Qualified Code(s): A41.9 - Sepsis, unspecified organism Is this a current diagnosis for this admission?: Yes Plan: Secondary to urinary tract infection most likely. Blood cultures pending. Urine culture growing gram-negative rods. Lactic acid level has started to decline. Repeat is pending. Fluids continue. (3) Syncope Qualifiers: Syncope type: unspecified Qualified Code(s): R55 - Syncope and collapse Is this a current diagnosis for this admission?: Yes Plan: No recurrence while in the hospital. This is likely secondary to her UTI and sepsis. Per her family her physical and mental status really seem to be improving with treatments being administered. (4) Urinary tract infection Qualifiers: Urinary tract infection type: site unspecified Hematuria presence: without hematuria Qualified Code(s): N39.0 - Urinary tract infection, site not specified Is this a current diagnosis for this admission?: Yes Plan: Gram-negative rods growing in urine. Patient is on cefepime. Urine culture not yet final. Fluid resuscitation in place. - Time Time Spent with patient: 25-34 minutes Anticipated discharge: Home - Inpatient Certification Based on my medical assessment, after consideration of the patient's comorbidities, presenting symptoms, or acuity I expect that the services needed warrant INPATIENT care.: Yes I certify that my determination is in accordance with my understanding of Medicare's requirements for reasonable and necessary INPATIENT services [42 CFR 412.3e].: Yes Medical Necessity: Need For IV Fluids, Need for IV Antibiotics
[2017-12-14 18:34] LABS: ANION GAP 10 (5-19); BLOOD UREA NITROGEN 26 mg/dL (7-20); CALCIUM 8.6 mg/dL (8.4-10.2); CARBON DIOXIDE 22 mmol/L (22-30); CHLORIDE 108 mmol/L (98-107); GLUCOSE 120 mg/dL (75-110); SODIUM 140.3 mmol/L (137-145)
[2017-12-15 05:30] LABS: HEMATOCRIT 28.1 % (36.0-47.0); HEMOGLOBIN 9.4 g/dL (12.0-15.5); MEAN CORPUSCULAR HEMOGLOBIN 28.7 pg (27.0-33.4); MEAN CORPUSCULAR HGB CONC 33.4 g/dL (32.0-36.0); MEAN CORPUSCULAR VOLUME 86 fl (80-97); PLATELET COUNT 316 10^3/uL (150-450); RED BLOOD COUNT 3.26 10^6/uL (3.72-5.28); RED CELL DISTRIBUTION WIDTH 15.2 % (11.5-14.0); WHITE BLOOD COUNT 18.2 10^3/uL (4.0-10.5)
[2017-12-15 05:58] LABS: ANION GAP 10 (5-19); BLOOD UREA NITROGEN 22 mg/dL (7-20); CALCIUM 8.6 mg/dL (8.4-10.2); CARBON DIOXIDE 20 mmol/L (22-30); CHLORIDE 110 mmol/L (98-107); GLUCOSE 102 mg/dL (75-110); SODIUM 140.3 mmol/L (137-145)
[2017-12-15] MEDS ORDERED: METHYLCELLULOSE 500 MG PO SCH (10:00)
[2017-12-15] MEDS: CEFEPIME 2 GM/D5W RTU 2 GM/50 ML RTUPB IV SCH ×2 (10:31→21:31)
[2017-12-15] MEDS: ENOXAPARIN SODIUM INJ 40 MG/0.4 ML DISP.SYRIN SUBCUT SCH (10:33)
[2017-12-15] MEDS: ASPIRIN 81 MG TABLET, ENT COATED PO SCH (10:33)
[2017-12-15] MEDS: CHOLECALCIFEROL (D3) 1,000 UNIT TABLET PO SCH (10:36)
[2017-12-15] MEDS: NORMAL SALINE 1000 ML 1,000 ML IV PRN (17:29)
--- NOTE | 2017-12-15 19:12 | PDOC PROGRESS REPORT ---
Subjective Progress Note for:: 12/15/17 Subjective:: Doing better, family at bedside. She is afebrile. Reason For Visit: SEPSIS WITH UTI Physical Exam Vital Signs: Temp Pulse Resp BP Pulse Ox 98.4 F 61 17 104/44 L 94 12/15/17 11:40 12/15/17 11:40 12/15/17 11:40 12/15/17 11:40 12/15/17 07:48 Intake & Output 12/14/17 12/15/17 12/16/17 06:59 06:59 06:59 Intake Total 755 3212 354 Balance 755 3212 354 Weight 61 kg 62 kg General appearance: PRESENT: no acute distress, thin Head exam: PRESENT: atraumatic, normocephalic Eye exam: ABSENT: conjunctival injection, scleral icterus Mouth exam: PRESENT: moist Respiratory exam: PRESENT: clear to auscultation derek, unlabored. ABSENT: rales , rhonchi, wheezes Cardiovascular exam: PRESENT: RRR. ABSENT: systolic murmur Pulses: PRESENT: normal radial pulses GI/Abdominal exam: PRESENT: normal bowel sounds, soft. ABSENT: distended, guarding, tenderness Rectal exam: PRESENT: deferred Extremities exam: ABSENT: pedal edema, +1 edema Neurological exam: PRESENT: awake, oriented to person, aphasic. ABSENT: oriented to place, oriented to situation Psychiatric exam: ABSENT: anxious Skin exam: PRESENT: dry, intact, warm Results Laboratory Results: 12/15/17 05:08 12/15/17 05:08 12/15/17 12/15/17 05:08 05:08 WBC 18.2 H RBC 3.26 L Hgb 9.4 L Hct 28.1 L MCV 86 MCH 28.7 MCHC 33.4 RDW 15.2 H Plt Count 316 Sodium 140.3 Potassium 4.0 Chloride 110 H Carbon Dioxide 20 L Anion Gap 10 BUN 22 H Creatinine 0.93 Est GFR ( Amer) > 60 Est GFR (Non-Af Amer) 57 L Glucose 102 Calcium 8.6 Magnesium 1.8 Impressions: Chest X-Ray 12/13/17 14:29 IMPRESSION: Mild left basilar atelectasis. Assessment & Plan - Plan Summary Plan Summary: (1) Acute renal failure Is this a current diagnosis for this admission?: Yes Plan: Secondary to urinary tract infection and sepsis, improved. Fluid resuscitation in place. (2) Sepsis Qualifiers: Sepsis type: sepsis due to unspecified organism Qualified Code(s): A41.9 - Sepsis, unspecified organism Is this a current diagnosis for this admission?: Yes Plan: Secondary to urinary tract infection most likely. Blood cultures negative 48 hours. Urine culture growing gram-negative rods. Lactic acid level has normalized. (3) Syncope Qualifiers: Syncope type: unspecified Qualified Code(s): R55 - Syncope and collapse Is this a current diagnosis for this admission?: Yes Plan: No recurrence while in the hospital. This is likely secondary to her UTI and sepsis. Per her family her physical and mental status really seem to be improving with current treatments. (4) Urinary tract infection Qualifiers: Urinary tract infection type: site unspecified Hematuria presence: without hematuria Qualified Code(s): N39.0 - Urinary tract infection, site not specified Is this a current diagnosis for this admission?: Yes Plan: Gram-negative rods growing in urine. Patient is on cefepime. Follow final culture.
[2017-12-16 06:50] LABS: ABSOLUTE BASOPHILS # (AUTO) 0.1 10^3/uL (0.0-0.2); ABSOLUTE EOSINOPHILS # (AUTO) 0.6 10^3/uL (0.0-0.6); ABSOLUTE LYMPHOCYTES (AUTO) 1.9 10^3/uL (0.5-4.7); ABSOLUTE MONOCYTES (AUTO) 0.5 10^3/uL (0.1-1.4); ABSOLUTE NEUT (AUTO) 7.8 10^3/uL (1.7-8.2); BASOPHILS % (AUTO) 1.2 % (0-2); EOSINOPHILS % (AUTO) 5.4 % (0-6); HEMATOCRIT 28.4 % (36.0-47.0); HEMOGLOBIN 9.6 g/dL (12.0-15.5); LYMPHOCYTES % (AUTO) 17.1 % (13-45); MEAN CORPUSCULAR HEMOGLOBIN 28.9 pg (27.0-33.4); MEAN CORPUSCULAR HGB CONC 33.7 g/dL (32.0-36.0); MEAN CORPUSCULAR VOLUME 86 fl (80-97); MONOCYTES % (AUTO) 4.5 % (3-13); PLATELET COUNT 312 10^3/uL (150-450); RED BLOOD COUNT 3.32 10^6/uL (3.72-5.28); RED CELL DISTRIBUTION WIDTH 14.9 % (11.5-14.0); SEGMENTED NEUTROPHILS % (AUTO) 71.8 % (42-78); TOTAL CELLS COUNTED % (AUTO) 100 %; WHITE BLOOD COUNT 10.9 10^3/uL (4.0-10.5)
[2017-12-16 07:04] LABS: ANION GAP 9 (5-19); BLOOD UREA NITROGEN 18 mg/dL (7-20); CALCIUM 8.6 mg/dL (8.4-10.2); CARBON DIOXIDE 21 mmol/L (22-30); CHLORIDE 110 mmol/L (98-107); GLUCOSE 92 mg/dL (75-110); POTASSIUM 4.3 mmol/L (3.6-5.0); SODIUM 140.1 mmol/L (137-145)
[2017-12-16] MEDS: CHOLECALCIFEROL (D3) 1,000 UNIT TABLET PO SCH (11:11)
[2017-12-16] MEDS: ASPIRIN 81 MG TABLET, ENT COATED PO SCH (11:11)
[2017-12-16] MEDS: CEFEPIME 2 GM/D5W RTU 2 GM/50 ML RTUPB IV SCH (11:12)
[2017-12-16] MEDS: ENOXAPARIN SODIUM INJ 40 MG/0.4 ML DISP.SYRIN SUBCUT SCH (11:13)
--- NOTE | 2017-12-16 19:04 | PDOC PROGRESS REPORT ---
Subjective Progress Note for:: 12/16/17 Subjective:: No adverse events overnight. No new complaints. Vital signs are stable. Her son-in-law does most of the talking because the patient does not really speak. She has not been eating very much. He thinks that she will eat more if we can get her to set up for longer periods of time. Reason For Visit: SEPSIS WITH UTI Physical Exam Vital Signs: Temp Pulse Resp BP Pulse Ox 97.5 F 58 L 13 144/58 H 99 12/16/17 11:19 12/16/17 14:00 12/16/17 11:19 12/16/17 11:19 12/16/17 11:19 Intake & Output 12/15/17 12/16/17 12/17/17 06:59 06:59 06:59 Intake Total 3212 758 1555 Balance 3212 758 1555 Weight 62 kg 62 kg General appearance: PRESENT: no acute distress, disheveled Respiratory exam: PRESENT: clear to auscultation derek, unlabored. ABSENT: accessory muscle use, rales, rhonchi, wheezes Cardiovascular exam: PRESENT: RRR. ABSENT: diastolic murmur, systolic murmur GI/Abdominal exam: PRESENT: normal bowel sounds, soft. ABSENT: guarding, rebound, tenderness Extremities exam: ABSENT: clubbing, pedal edema Musculoskeletal exam: ABSENT: ambulatory, deformity Neurological exam: PRESENT: alert, awake, aphasic Results Laboratory Results: 12/16/17 06:05 12/16/17 06:05 12/16/17 12/16/17 06:05 06:05 WBC 10.9 H RBC 3.32 L Hgb 9.6 L Hct 28.4 L MCV 86 MCH 28.9 MCHC 33.7 RDW 14.9 H Plt Count 312 Seg Neutrophils % 71.8 Lymphocytes % 17.1 Monocytes % 4.5 Eosinophils % 5.4 Basophils % 1.2 Absolute Neutrophils 7.8 Absolute Lymphocytes 1.9 Absolute Monocytes 0.5 Absolute Eosinophils 0.6 Absolute Basophils 0.1 Sodium 140.1 Potassium 4.3 Chloride 110 H Carbon Dioxide 21 L Anion Gap 9 BUN 18 Creatinine 0.82 Est GFR ( Amer) > 60 Est GFR (Non-Af Amer) > 60 Glucose 92 Calcium 8.6 Impressions: Chest X-Ray 12/13/17 14:29 IMPRESSION: Mild left basilar atelectasis. Assessment & Plan - Diagnosis (1) Sepsis Qualifiers: Sepsis type: sepsis due to unspecified organism Qualified Code(s): A41.9 - Sepsis, unspecified organism Is this a current diagnosis for this admission?: Yes Plan: Resolved (2) Urinary tract infection Qualifiers: Urinary tract infection type: site unspecified Hematuria presence: without hematuria Qualified Code(s): N39.0 - Urinary tract infection, site not specified Is this a current diagnosis for this admission?: Yes Plan: She grew out a Citrobacter is resistant first and second generation cephalosporins but sensitive to third-generation cephalosporins. I am going to put her on Vantin, which we should be able to crush and put in pudding or applesauce which is how she usually takes her medications. - Time Time Spent with patient: 15-24 minutes
[2017-12-16] MEDS: CEFPODOXIME 200 MG TABLET PO SCH (21:07)
[2017-12-16] MEDS ORDERED: CEFPODOXIME 200 MG TABLET PO SCH (22:00)
[2017-12-17] MEDS: ENOXAPARIN SODIUM INJ 40 MG/0.4 ML DISP.SYRIN SUBCUT SCH (11:54)
[2017-12-17] MEDS: CEFPODOXIME 200 MG TABLET PO SCH ×2 (11:54→23:47)
[2017-12-17] MEDS: CHOLECALCIFEROL (D3) 1,000 UNIT TABLET PO SCH (11:54)
[2017-12-17] MEDS: ASPIRIN 81 MG TABLET, ENT COATED PO SCH (11:54)
--- NOTE | 2017-12-17 16:06 | Progress Note ---
Provider Note Provider Note: SHe has dementia, and requires maximum assist x 2 for transfers.
--- NOTE | 2017-12-17 17:41 | PDOC DISCHARGE SUMMARY ---
General - Admit/Disc Date/PCP Admission Date/Primary Care Provider: 12/13/17 18:43 KRISTY ELKINS Discharge Date: 12/17/17 - Discharge Diagnosis (1) Sepsis Is this a current diagnosis for this admission?: Yes Summary: Resolved with treatment of her UTI. (2) Urinary tract infection Is this a current diagnosis for this admission?: Yes Summary: Turned out to be a Citrobacter. Treated with IV antibiotics for a few days and then transitioned over to oral Vantin which she will complete back at her assisted living facility. - Additional Information Resuscitation Status: Do Not Resuscitate Discharge Diet: Other (Comments) - resume previous Discharge Activity: No Driving, Supervised Activity Prescriptions: Cefpodoxime Proxetil [Vantin 200 mg Tablet] 200 mg PO Q12 #14 tablet Home Medications: Aspirin [Aspirin EC] 81 mg PO DAILY 12/14/17 Cholecalciferol (Vitamin D3) [Vitamin D3 2000 unit Tablet] 4,000 unit PO DAILY 12/14/17 Juniper/Jaime/Znox/Pet,Wh/Flaco [Endit Ointment] 480 gm TP BID 12/14/17 Methylcellulose [Citrucel] 500 mg PO DAILY 12/14/17 Cefpodoxime Proxetil [Vantin 200 mg Tablet] 200 mg PO Q12 #14 tablet 12/17/17 History of Present Illness History of Present Illness: DAVID AUGUSTE is a 82 year old female from a shelter facility ( actually in assisted living) at [facility]. Patient comes after she was having a bowel movement and had a syncopal episode in the morning, patient cannot provide history as is lethargic. Son is at the bedside and I got information from him and the ED records. Had a bowel movement which was soft and nonbloody. Apparently patient did not have any recent fever or chills but she was treated 2 weeks ago for urinary tract infection, was on amoxicillin later this week. Has generalized weakness. She is nonambulatory in a wheelchair. Family tells me that she was doing great during the last week. She has vascular dementia and upon arrival to the ED was at her baseline mental status. Currently patient is laying in bed with eyes closed and cannot answer any questions appropriately, moaning. Laboratory in the emergency department was consistent with sepsis urinalysis positive for infection. Hospital Course Hospital Course: She was treated with IV antibiotics until the culture results came back, and they were positive for a Citrobacter freundii. He was resistant to first and second generation cephalosporins, but had good susceptibility to third- generation cephalosporins. We were able to put Vantin crushed up and some pudding and she took it that way. I checked the mercantile agent's information on this drug and it does not say that she cannot crush it so putting it in pudding or applesauce and giving it to her in this manner seems to be a reasonable thing to do. Her son-in-law thinks that she would spit out the liquid form. She also has dementia and was seen by physical therapy and she was 2 person max assist with transfers. We will get a set up some physical therapy for her. Her labs and examination were reassuring and she was discharged back to her assisted living facility today in good condition. Physical Exam Vital Signs: Temp Pulse Resp BP Pulse Ox 97.6 F 65 14 125/78 97 12/17/17 11:52 12/17/17 11:52 12/17/17 11:52 12/17/17 11:52 12/17/17 08:00 Intake & Output 12/16/17 12/17/17 12/18/17 06:59 06:59 06:59 Intake Total 758 1655 Output Total 50 Balance 758 1605 Weight 62 kg General appearance: PRESENT: no acute distress, cooperative Respiratory exam: PRESENT: clear to auscultation derek, unlabored. ABSENT: accessory muscle use, rales, rhonchi, wheezes Cardiovascular exam: PRESENT: RRR. ABSENT: systolic murmur Vascular exam: PRESENT: normal capillary refill GI/Abdominal exam: PRESENT: normal bowel sounds, soft. ABSENT: guarding, rebound, tenderness Extremities exam: ABSENT: pedal edema Musculoskeletal exam: PRESENT: normal inspection. ABSENT: deformity Neurological exam: PRESENT: alert, awake, aphasic. ABSENT: oriented to person, oriented to place, oriented to time Skin exam: PRESENT: dry, warm Results Laboratory Results: 12/16/17 06:05 12/16/17 06:05 Impressions: Chest X-Ray 12/13/17 14:29 IMPRESSION: Mild left basilar atelectasis. Qualifiers - * PATIENT BEING DISCHARGED WITH ANY OF THE FOLLOWING DIAGNOSIS: No
[2017-12-18] MEDS: CHOLECALCIFEROL (D3) 1,000 UNIT TABLET PO SCH (11:32)
[2017-12-18] MEDS: CEFPODOXIME 200 MG TABLET PO SCH (11:33)
[2017-12-18] MEDS: ASPIRIN 81 MG TABLET, ENT COATED PO SCH (11:33)
[2017-12-18] MEDS: ENOXAPARIN SODIUM INJ 40 MG/0.4 ML DISP.SYRIN SUBCUT SCH (11:33)
--- NOTE | 2017-12-18 13:34 | PDOC TRANSFER SUMMARY ---
General - Admit/Disc Date/PCP Admission Date/Primary Care Provider: 12/13/17 18:43 KRISTY ELKINS Discharge Date: 12/18/17 - Discharge Diagnosis (1) Sepsis Is this a current diagnosis for this admission?: Yes Summary: Resolved with treatment of her UTI. (2) Urinary tract infection Is this a current diagnosis for this admission?: Yes Summary: Turned out to be a Citrobacter. Treated with IV antibiotics for a few days and then transitioned over to oral Vantin which she will complete back at her assisted living facility. - Additional Information Resuscitation Status: Do Not Resuscitate Discharge Diet: Other (Comments) - resume previous Discharge Activity: No Driving, Supervised Activity Prescriptions: Cefpodoxime Proxetil [Vantin 200 mg Tablet] 200 mg PO Q12 #14 tablet Home Medications: Aspirin [Aspirin EC] 81 mg PO DAILY 12/14/17 Cholecalciferol (Vitamin D3) [Vitamin D3 2000 unit Tablet] 4,000 unit PO DAILY 12/14/17 Juniper/Jaime/Znox/Pet,Wh/Flaco [Endit Ointment] 480 gm TP BID 12/14/17 Methylcellulose [Citrucel] 500 mg PO DAILY 12/14/17 Cefpodoxime Proxetil [Vantin 200 mg Tablet] 200 mg PO Q12 #14 tablet 12/17/17 History of Present Illness Admission Date/PCP: 12/13/17 History of Present Illness: DAVID AUGUSTE is a 82 year old female from a correction facility ( actually in assisted living) at [facility]. Patient comes after she was having a bowel movement and had a syncopal episode in the morning, patient cannot provide history as is lethargic. Son is at the bedside and I got information from him and the ED records. Had a bowel movement which was soft and nonbloody. Apparently patient did not have any recent fever or chills but she was treated 2 weeks ago for urinary tract infection, was on amoxicillin later this week. Has generalized weakness. She is nonambulatory in a wheelchair. Family tells me that she was doing great during the last week. She has vascular dementia and upon arrival to the ED was at her baseline mental status. Currently patient is laying in bed with eyes closed and cannot answer any questions appropriately, moaning. Laboratory in the emergency department was consistent with sepsis urinalysis positive for infection. Hospital Course Hospital Course: She was treated with IV antibiotics until the culture results came back, and they were positive for a Citrobacter freundii. He was resistant to first and second generation cephalosporins, but had good susceptibility to third- generation cephalosporins. We were able to put Vantin crushed up and some pudding and she took it that way. I checked the velocity shooter's information on this drug and it does not say that she cannot crush it so putting it in pudding or applesauce and giving it to her in this manner seems to be a reasonable thing to do. Her son-in-law thinks that she would spit out the liquid form. She also has dementia and was seen by physical therapy and she was 2 person max assist with transfers. We will get a set up some physical therapy for her. Her labs and examination were reassuring and she was discharged back to her assisted living facility today in good condition. Physical Exam Vital Signs: Temp Pulse Resp BP Pulse Ox 97.9 F 66 16 129/61 H 100 12/18/17 00:00 12/18/17 02:00 12/18/17 00:00 12/18/17 00:00 12/18/17 00:00 Intake & Output 12/17/17 12/18/17 12/19/17 06:59 06:59 06:59 Intake Total 1655 Output Total 50 Balance 1605 General appearance: PRESENT: no acute distress, cooperative Respiratory exam: PRESENT: clear to auscultation derek, unlabored. ABSENT: accessory muscle use, rales, rhonchi, wheezes Cardiovascular exam: PRESENT: RRR. ABSENT: systolic murmur Vascular exam: PRESENT: normal capillary refill GI/Abdominal exam: PRESENT: normal bowel sounds, soft. ABSENT: guarding, rebound, tenderness Extremities exam: ABSENT: pedal edema Musculoskeletal exam: PRESENT: normal inspection. ABSENT: deformity Neurological exam: PRESENT: alert, awake, aphasic. ABSENT: oriented to person, oriented to place, oriented to time Skin exam: PRESENT: dry, warm Results Laboratory Results: 12/16/17 06:05 12/16/17 06:05 Impressions: Chest X-Ray 12/13/17 14:29 IMPRESSION: Mild left basilar atelectasis. Transfer Plan - Time Spent with Patient Time spent with patient: Greater than 30 Minutes Qualifiers - * PATIENT BEING DISCHARGED WITH ANY OF THE FOLLOWING DIAGNOSIS: No
[2017-12-18 14:26] VITALS: BP 149/86
== END 2017-12-18 16:55 | DRG 872 ==
LOC: ER 14:00 → EH 18:43 → 4S 22:27
PROVIDERS: ADMIT Internal Medicine; ATTEND Internal Medicine
DX: A41.9 Sepsis, unspecified organism (principal); N39.0 Urinary tract infection, site not specified; N17.9 Acute kidney failure, unspecified; Z66 Do not resuscitate; B96.89 Other specified bacterial agents as the cause of diseases classified elsewhere; E86.0 Dehydration; F01.50 Vascular dementia, unspecified severity, without behavioral disturbance, psychotic disturbance, mood disturbance, and anxiety; I10 Essential (primary) hypertension; Z79.899 Other long term (current) drug therapy; Z85.038 Personal history of other malignant neoplasm of large intestine; Z90.49 Acquired absence of other specified parts of digestive tract; Z87.891 Personal history of nicotine dependence; Z82.3 Family history of stroke; Z82.49 Family history of ischemic heart disease and other diseases of the circulatory system
CPT/HCPCS: 36415; 51701; 71045; 80048; 80053; 81001; 82962; 83605; 83690; 83735; 84484; 85025; 85027; 87040; 87086; 87088; 87186; 93005; 93010; 96365; 96375; 99285; G8978-GP; G8979-GP; J0692; J0696; J1650; J2405; J3490; J7030

== ENCOUNTER 2018-05-31 15:09 | Emergency (ER) | payer MEDICARE ==
[2018-05-31 15:43] LABS: ABSOLUTE BASOPHILS # (AUTO) 0.1 10^3/uL (0.0-0.2); ABSOLUTE LYMPHOCYTES (AUTO) 1.4 10^3/uL (0.5-4.7); ABSOLUTE MONOCYTES (AUTO) 0.8 10^3/uL (0.1-1.4); ABSOLUTE NEUT (AUTO) 11.7 10^3/uL (1.7-8.2); BASOPHILS % (AUTO) 0.8 % (0-2); EOSINOPHILS % (AUTO) 0.2 % (0-6); HEMOGLOBIN 11.1 g/dL (12.0-15.5); LYMPHOCYTES % (AUTO) 9.8 % (13-45); MEAN CORPUSCULAR HEMOGLOBIN 28.5 pg (27.0-33.4); MEAN CORPUSCULAR HGB CONC 32.8 g/dL (32.0-36.0); MEAN CORPUSCULAR VOLUME 87 fl (80-97); MONOCYTES % (AUTO) 5.5 % (3-13); PLATELET COUNT 469 10^3/uL (150-450); SEGMENTED NEUTROPHILS % (AUTO) 83.7 % (42-78); TOTAL CELLS COUNTED % (AUTO) 100 %
[2018-05-31 16:01] LABS: ANION GAP 8 (5-19); BLOOD UREA NITROGEN 23 mg/dL (7-20); CALCIUM 9.1 mg/dL (8.4-10.2); CARBON DIOXIDE 25 mmol/L (22-30); CHLORIDE 101 mmol/L (98-107); GLUCOSE 108 mg/dL (75-110); POTASSIUM 5.1 mmol/L (3.6-5.0)
[2018-05-31 16:17] LABS: APPEARANCE,URINE SLIGHTLY-CLOUDY; BILIRUBIN,URINE NEGATIVE (NEGATIVE); COLOR,URINE YELLOW; GLUCOSE, URINE NEGATIVE (NEGATIVE); KETONES,URINE NEGATIVE (NEGATIVE); LEUKOCYTE ESTERASE,URINE MODERATE (NEGATIVE); NITRITE,URINE POSITIVE (NEGATIVE); PROTEIN,URINE 100 mg/dL (NEGATIVE); URINE SPECIFIC GRAVITY 1.019; UROBILINOGEN,URINE NEGATIVE mg/dL (<2.0)
[2018-05-31] MEDS ORDERED: CEFTRIAXONE 1 GM/D5W RTU 1 GM/50 ML RTUPB IV ONE ×2 (16:40→16:50)
[2018-05-31] MEDS ORDERED: RINGERS SOLUTION,LACTATED 1,000 ML IV ONE (16:40)
[2018-05-31] MEDS ORDERED: KETOROLAC TROMETHAMINE INJ/PF 30 MG/1 ML SDV IV ONE (16:40)
--- NOTE | 2018-05-31 17:57 | RADIOLOGY REPORT (SQ) ---
EXAM DESCRIPTION: CHEST SINGLE VIEW COMPLETED DATE/TIME: 05/31/2018 5:47 pm REASON FOR STUDY: cough fever COMPARISON: 12/13/2017 EXAM PARAMETERS: NUMBER OF VIEWS: One view. TECHNIQUE: Single frontal radiographic view of the chest acquired. RADIATION DOSE: NA LIMITATIONS: None. FINDINGS: LUNGS AND PLEURA: Rotated examination. No airspace opacity. MEDIASTINUM AND HILAR STRUCTURES: The right hilum is prominent. HEART AND VASCULAR STRUCTURES: Heart normal in size. Normal vasculature. BONES: No acute findings. HARDWARE: None in the chest. OTHER: No other significant finding. IMPRESSION: Rotated examination. The right hilum is prominent, which may reflect mass, lymphadenopa thy, or artifact of rotated technique. At minimum recommend repeat radiographs with improved PA and lateral technique with further consideration of CT if indicated by findings. TECHNICAL DOCUMENTATION: JOB ID: [id number] [employer]- All Rights Reserved Reading location - IP/workstation name: [email or web address]
--- NOTE | 2018-05-31 19:12 | ER Document Report ---
ED General - General Chief Complaint: Altered Mental Status Stated Complaint: ALTERED MENTAL STATUS Time Seen by Provider: 05/31/18 15:22 TRAVEL OUTSIDE OF THE [place] IN LAST 30 DAYS: No - Related Data Allergies/Adverse Reactions: BUG BITES Adverse Reaction (Uncoded 12/14/17 10:12) Past Medical History - Social History Smoking Status: Unknown if Ever Smoked Family History: CVA, Hypertension Patient has suicidal ideation: No Patient has homicidal ideation: No - Past Medical History Cardiac Medical History: Denies: Hx Hypertension Renal/ Medical History: Denies: Hx Peritoneal Dialysis Malignancy Medical History: Reports: Hx Colorectal Cancer Past Surgical History: Reports: Hx Abdominal Surgery - bowel resection, Other - Bowel resection Physical Exam - Vital signs Vitals: Temp Resp BP Pulse Ox 100.4 F 26 H 132/50 H 93 05/31/18 15:32 05/31/18 15:32 05/31/18 15:32 05/31/18 15:32 Course - Vital Signs Vital signs: Temp Pulse Resp BP Pulse Ox 100.1 F 20 109/42 L 94 05/31/18 17:45 05/31/18 18:01 05/31/18 18:01 05/31/18 18:01 - Laboratory Result Diagrams: 05/31/18 15:30 05/31/18 15:30 Laboratory results interpreted by me: 05/31/18 05/31/18 05/31/18 15:30 15:30 15:56 WBC 14.0 H Hgb 11.1 L Hct 34.0 L RDW 16.0 H Plt Count 469 H Seg Neutrophils % 83.7 H Lymphocytes % 9.8 L Absolute Neutrophils 11.7 H Sodium 134.0 L Potassium 5.1 H BUN 23 H Est GFR ( Amer) 54 L Est GFR (Non-Af Amer) 45 L Urine Protein 100 H Urine Nitrite POSITIVE H Ur Leukocyte Esterase MODERATE H Urine Ascorbic Acid 40 H Discharge - Discharge Clinical Impression: Dehydration Urinary tract infection Qualifiers: Urinary tract infection type: site unspecified Hematuria presence: without hematuria Qualified Code(s): N39.0 - Urinary tract infection, site not specified Dementia Qualifiers: Dementia type: unspecified type Dementia behavioral disturbance: with behavioral disturbance Qualified Code(s): F03.91 - Unspecified dementia with behavioral disturbance Condition: Good Disposition: SNF-Other Instructions: Urinary Tract Infection ([facility]) Additional Instructions: Your urine shows findings consistent with a urinary tract infection. Please take all the antibiotics as directed even if your symptoms have improved. Please follow-up with your primary care physician as needed. Return to emergency room if you develop fever >101F, persistent vomiting, become lethargic, have severe pain in your sides, or any other symptoms that are concerning to you. Prescriptions: Acetaminophen [Tylenol 325 mg Supp] 325 mg RI Q4HP PRN #12 supp.rect PRN Reason: Cephalexin Monohydrate [Keflex 125 mg/5 ml Susp] 500 mg PO BID #280 ml Referrals: KRISTY ELKINS MD [Primary Care Provider] - Follow up as needed
[2018-05-31 20:15] VITALS: BP 102/59
--- NOTE | 2018-05-31 20:19 | ER Document Report ---
ED General - General Chief Complaint: Altered Mental Status Stated Complaint: ALTERED MENTAL STATUS Time Seen by Provider: 05/31/18 15:22 Mode of Arrival: Medic Information source: Relative, Emergency Med Personnel, [facility] Records, Outside Facility Records Cannot obtain history due to: Dementia Notes: 82-year-old female with vascular dementia, recurrent UTIs presents via EMS from a nursing home facility with altered mental status and concern for recurrent urinary tract infection. Daughter is at the bedside and states that the patient is steadily declining. She states that it is more difficult to get the patient to eat and drink. Patient was recently treated for a urinary tract infection. Patient unable to provide any history. Daughter states that the patient is a DNR. They are currently looking into hospice care. TRAVEL OUTSIDE OF THE [place] IN LAST 30 DAYS: No - HPI Onset: Other Onset/Duration: Persistent Similar symptoms previously: Yes Recently seen / treated by doctor: Yes - Related Data Allergies/Adverse Reactions: BUG BITES Adverse Reaction (Uncoded 12/14/17 10:12) Past Medical History - General Information source: Relative, [facility] Records - Social History Smoking Status: Unknown if Ever Smoked Frequency of alcohol use: None Drug Abuse: None Lives with: [facility] Family History: CVA, Hypertension Patient has suicidal ideation: No Patient has homicidal ideation: No - Past Medical History Cardiac Medical History: Denies: Hx Hypertension Renal/ Medical History: Denies: Hx Peritoneal Dialysis Malignancy Medical History: Reports: Hx Colorectal Cancer Past Surgical History: Reports: Hx Abdominal Surgery - bowel resection, Other - Bowel resection Review of Systems - Review of Systems -: Yes ROS unobtainable due to patient's medical condition Physical Exam - Vital signs Vitals: Temp Resp BP Pulse Ox 100.4 F 26 H 132/50 H 93 05/31/18 15:32 05/31/18 15:32 05/31/18 15:32 05/31/18 15:32 - Notes Notes: PHYSICAL EXAMINATION: GENERAL: Frail, no acute distress HEAD: Atraumatic, normocephalic. EYES: Pupils equal round and reactive to light, extraocular movements intact, conjunctiva are normal. ENT: Nares patent, oropharynx clear without exudates. Moist mucous membranes. NECK: Normal range of motion, supple without lymphadenopathy LUNGS: Breath sounds clear to auscultation bilaterally and equal. No wheezes rales or rhonchi. HEART: Regular rate and rhythm without murmurs ABDOMEN: Soft, nontender, nondistended abdomen. No guarding, no rebound. No masses appreciated. Female : deferred Musculoskeletal: Contracted extremities. NEUROLOGICAL: Awake, alert, nonverbal at baseline. Does not follow commands. PSYCH: No agitation SKIN: Warm, Dry, normal turgor, no rashes or lesions noted. Course - Re-evaluation Re-evalutation: 06/01/18 01:53 Laboratory 05/31/18 05/31/18 05/31/18 15:30 15:30 15:56 WBC 14.0 H RBC 3.90 Hgb 11.1 L Hct 34.0 L MCV 87 MCH 28.5 MCHC 32.8 RDW 16.0 H Plt Count 469 H Seg Neutrophils % 83.7 H Lymphocytes % 9.8 L Monocytes % 5.5 Eosinophils % 0.2 Basophils % 0.8 Absolute Neutrophils 11.7 H Absolute Lymphocytes 1.4 Absolute Monocytes 0.8 Absolute Eosinophils 0.0 Absolute Basophils 0.1 Sodium 134.0 L Potassium 5.1 H Chloride 101 Carbon Dioxide 25 Anion Gap 8 BUN 23 H Creatinine 1.15 Est GFR ( Amer) 54 L Est GFR (Non-Af Amer) 45 L Glucose 108 Calcium 9.1 Urine Color YELLOW Urine Appearance SLIGHTLY-CLOUDY Urine pH 6.0 Ur Specific [place] 1.019 Urine Protein 100 H Urine Glucose (UA) NEGATIVE Urine Ketones NEGATIVE Urine Blood NEGATIVE Urine Nitrite POSITIVE H Urine Bilirubin NEGATIVE Urine Urobilinogen NEGATIVE Ur Leukocyte Esterase MODERATE H Urine WBC (Auto) 111 Urine RBC (Auto) 8 Urine Bacteria (Auto) 2+ Squamous Epi Cells Auto <1 Urine Mucus (Auto) RARE Urine Ascorbic Acid 40 H Chest X-Ray 05/31/18 17:27 IMPRESSION: Rotated examination. The right hilum is prominent, which may reflect mass, lymphadenopathy, or artifact of rotated technique. At minimum recommend repeat radiographs with improved PA and lateral technique with further consideration of CT if indicated by findings. Temp Pulse Resp BP Pulse Ox 98 F 18 102/59 L 92 05/31/18 20:00 05/31/18 20:01 05/31/18 20:15 05/31/18 20:00 82-year-old female with vascular dementia and who is a DNR presents from her nursing home facility with her daughter and son at the bedside. Daughter reports that patient has had recurrent urine tract infections. Also reports that the patient is steadily declining and becoming more difficult to feed and hydrate. Vital signs reviewed upon arrival patient is febrile with temperature of 100.9 rectally. This resolved after administration of Toradol. Urinalysis obtained and is consistent with urinary tract infection. Previous urine culture was reviewed which showed Klebsiella which is susceptible to most antibiotics. Patient was given 2 L of lactated Ringer's and a gram of ceftriaxone. I had a long discussion with the daughter and the son regarding the goals of end-of-life care. I stated that I could admit her if that was their wishes but that bring her into the hospital would also expose her to other sources of infection. They state they believe that their mother would not want to come into the hospital. We discussed hospice care for a long time and they state that they have been interviewing facilities. Patient was discharged back to her nursing home facility with a prescription for Keflex. Patient was evaluated and treated as appropriate for the patient's presenting symptoms and complaint, with consideration of any critical or life threatening conditions that may be associated with their obtained history and exam as noted above. All results were discussed with patient. Patient provided the opportunity to ask questions, and express concerns. Patient was educated on treatments based on their presumed diagnosis as noted above. At this time we will discharge the patient with return precautions and follow-up recommendations. Verbal discharge instructions given a the bedside. Medication warnings reviewed. Patient is in agreement with this plan and has verbalized understanding of return precautions. After careful consideration I feel that that patient can be safely discharged from the emergency department, they were advised to followup with a primary care physician in 2-3 days. Dictation on this chart was performed using voice recognition software and may result in unintended grammatical, spelling, syntax or errors. - Vital Signs Vital signs: Temp Pulse Resp BP Pulse Ox 98 F 18 102/59 L 92 05/31/18 20:00 05/31/18 20:01 05/31/18 20:15 05/31/18 20:00 - Laboratory Result Diagrams: 05/31/18 15:30 05/31/18 15:30 Laboratory results interpreted by me: 05/31/18 05/31/18 05/31/18 15:30 15:30 15:56 WBC 14.0 H Hgb 11.1 L Hct 34.0 L RDW 16.0 H Plt Count 469 H Seg Neutrophils % 83.7 H Lymphocytes % 9.8 L Absolute Neutrophils 11.7 H Sodium 134.0 L Potassium 5.1 H BUN 23 H Est GFR ( Amer) 54 L Est GFR (Non-Af Amer) 45 L Urine Protein 100 H Urine Nitrite POSITIVE H Ur Leukocyte Esterase MODERATE H Urine Ascorbic Acid 40 H - Diagnostic Test Radiology reviewed: Image reviewed, Reports reviewed Discharge - Discharge Clinical Impression: Dehydration Urinary tract infection Qualifiers: Urinary tract infection type: site unspecified Hematuria presence: without hematuria Qualified Code(s): N39.0 - Urinary tract infection, site not specified Dementia Qualifiers: Dementia type: unspecified type Dementia behavioral disturbance: with behavioral disturbance Qualified Code(s): F03.91 - Unspecified dementia with behavioral disturbance Condition: Good Disposition: SNF-Other Instructions: Urinary Tract Infection ([facility]) Additional Instructions: Your urine shows findings consistent with a urinary tract infection. Please take all the antibiotics as directed even if your symptoms have improved. Please follow-up with your primary care physician as needed. Return to emergency room if you develop fever >101F, persistent vomiting, become lethargic, have severe pain in your sides, or any other symptoms that are concerning to you. Prescriptions: Acetaminophen [Tylenol 325 mg Supp] 325 mg NE Q4HP PRN #12 supp.rect PRN Reason: Cephalexin Monohydrate [Keflex 125 mg/5 ml Susp] 500 mg PO BID #280 ml Referrals: KRISTY ELKINS MD [Primary Care Provider] - Follow up in 3-5 days
== END 2018-05-31 20:25 ==
LOC: ER 15:09
DX: N39.0 Urinary tract infection, site not specified (principal); E86.0 Dehydration; F01.50 Vascular dementia, unspecified severity, without behavioral disturbance, psychotic disturbance, mood disturbance, and anxiety; R50.9 Fever, unspecified; Z66 Do not resuscitate; Z85.048 Personal history of other malignant neoplasm of rectum, rectosigmoid junction, and anus
CPT/HCPCS: 99285; 96375; 96365; 36415; 87086; 85025; 87088; 80048; 81001; 87186; 71045; J1885; J7120; J0696